=== PATIENT | female | born 1990 | race Caucasian/White ===

== ENCOUNTER 2017-10-28 23:11 | Emergency (ER) | payer OTHER | END 2017-10-29 01:11 | disposition home or self-care (01) | LOC: FTE 23:11 | DX: J35.8 Other chronic diseases of tonsils and adenoids (principal) | CPT/HCPCS: 87880; 99283 ==

== ENCOUNTER 2017-11-01 16:01 | Emergency (ER) | payer OTHER | END 2017-11-01 16:48 | disposition home or self-care (01) | LOC: FTE 16:01 | DX: J02.9 Acute pharyngitis, unspecified (principal) | CPT/HCPCS: 99283; Z7502 ==

== ENCOUNTER 2018-05-08 19:37 | Emergency (ER) | payer OTHER | END 2018-05-08 21:30 | disposition home or self-care (01) | LOC: FTE 19:37 | DX: H10.9 Unspecified conjunctivitis (principal) | CPT/HCPCS: 99283; Z7502 ==